=== PATIENT | male | born 1975 ===

== ENCOUNTER 2017-04-06 09:30 | Emergency (ER) | payer OTHER, SELFPAY ==
[2017-04-06 09:33] VITALS: BMI 30.9
[2017-04-06 09:34] VITALS: BP 145/84; PULSE 56; RESP 17; TEMP 98.8; O2SAT 100
--- NOTE | 2017-04-06 10:48 | ED PDOC ---
HPI: Back Time Seen by Provider: 04/06/17 09:38 Chief Complaint (Nursing): Back Pain Chief Complaint (Provider): Back pain History Per: Patient History/Exam Limitations: no limitations Onset/Duration Of Symptoms: Days (x2) Current Symptoms Are (Timing): Still Present Pain Scale Rating Of: 7 Exacerbating Factor(s): Movement Additional Complaint(s): Herrera Hutchinson is a 41 year old male, with no past medical history, who presents to the emergency department complaining of left mid back pain onset for 2 days. Patient states he had the same symptoms on the right side a few days ago and took motrin for the pain. Patient reports the pain is worst with movement. He denies any trauma, cough, fever. No further medical complaints. PMD: Wayne Gupta Past Medical History Reviewed: Historical Data, Nursing Documentation, Vital Signs Vital Signs: Last Vital Signs Temp 98.8 F 04/06/17 09:42 Pulse 56 L 04/06/17 09:42 Resp 17 04/06/17 09:42 BP 145/84 04/06/17 09:42 Pulse Ox 100 04/06/17 09:42 - Surgical History Surgical History: Appendectomy - Family History Family History: States: Unknown Family Hx - Social History Current smoker - smoking cessation education provided: No Alcohol: None Drugs: Denies - Home Medications Home Medications: Ambulatory Orders Medication Instructions Recorded Cyclobenzaprine [Cyclobenzaprine 10 mg PO TID PRN #15 tab 04/06/17 HCl] Naproxen [Naprosyn] 500 mg PO BID PRN #15 tablet 04/06/17 - Allergies Allergies/Adverse Reactions: Allergies Allergy/AdvReac Type Severity Reaction Status Date / Time No Known Allergies Allergy Verified 04/06/17 09:42 Review of Systems ROS Statement: Except As Marked, All Systems Reviewed And Found Negative Constitutional: Negative for: Fever, Other (trauma) Respiratory: Negative for: Cough Musculoskeletal: Positive for: Back Pain (left mid ) Physical Exam - Reviewed Nursing Documentation Reviewed: Yes Vital Signs Reviewed: Yes - Physical Exam Appears: Positive for: Well, Non-toxic, No Acute Distress Head Exam: Positive for: ATRAUMATIC, NORMAL INSPECTION, NORMOCEPHALIC Skin: Positive for: Normal Color, Warm, Dry Eye Exam: Positive for: Normal appearance Neck: Positive for: Normal, Painless ROM, Supple Cardiovascular/Chest: Positive for: Regular Rate, Rhythm. Negative for: Murmur Respiratory: Positive for: Normal Breath Sounds. Negative for: Respiratory Distress Back: Positive for: Vertebral Tenderness (Left paraspinal tenderness. No ecchymosis, edema or lesion. No crepitus. ). Negative for: L CVA Tenderness, R CVA Tenderness Extremity: Positive for: Normal ROM. Negative for: Pedal Edema, Deformity Neurologic/Psych: Positive for: Alert, Oriented. Negative for: Motor/Sensory Deficits - ECG O2 Sat by Pulse Oximetry: 100 (RA) Pulse Ox Interpretation: Normal Medical Decision Making Medical Decision Making: Initial Impression: back pain Initial Plan: Toradol 30 mg IM reevaluation Scribe Attestation: Documented by Manjinder Adams, acting as a scribe for Wilda Beavers MD Provider Scribe Attestation: All medical record entries made by the Scribe were at my direction and personally dictated by me. I have reviewed the chart and agree that the record accurately reflects my personal performance of the history, physical exam, medical decision making, and the department course for this patient. I have also personally directed, reviewed, and agree with the discharge instructions and disposition. Disposition - Clinical Impression Clinical Impression: Mid back pain - Disposition Referrals: [facility] [Outside] Disposition: Routine/Home Disposition Time: 10:36 Condition: GOOD Prescriptions: Cyclobenzaprine [Cyclobenzaprine HCl] 10 mg PO TID PRN #15 tab PRN Reason: Pain Naproxen [Naprosyn] 500 mg PO BID PRN #15 tablet PRN Reason: Pain, Moderate (4-7) Instructions: Back Pain (ED) Forms: [employer] (Armenian) Print Language: NEPALI
== END 2017-04-06 10:49 | disposition home or self-care (01) ==
LOC: H.ER 09:30
DX: M54.9 Dorsalgia, unspecified (principal)
CPT/HCPCS: 96372; 99282; J1885